=== PATIENT | female | born 1990 | race Two or more races ===

== ENCOUNTER 2018-06-29 17:47 | Emergency (ER) | payer MEDICAID ==
[~2018-06-29] VITALS: Ht 157.5 cm; Wt 48.1 kg
[2018-06-29 18:34] VITALS: BP 92/53
== END 2018-06-29 20:05 | disposition home or self-care (01) ==
LOC: ER 17:53
DX: K02.9 Dental caries, unspecified (principal)

== ENCOUNTER 2019-10-25 22:12 | Emergency (ER) | payer MEDICAID ==
[~2019-10-25] VITALS: Ht 157.5 cm; Wt 48.1 kg
[2019-10-25 23:38] VITALS: BP 107/63
== END 2019-10-26 00:04 | disposition home or self-care (01) ==
LOC: ER 22:15
DX: J06.9 Acute upper respiratory infection, unspecified (principal)

== ENCOUNTER 2020-01-27 05:44 | Emergency (ER) | payer MEDICAID ==
[~2020-01-27] VITALS: Ht 157.5 cm; Wt 57.2 kg
[2020-01-27 06:40] VITALS: BP 99/69
[2020-01-27] MEDS ORDERED: methylPREDNISolone SOD SUCC 125 MG/2 ML VL IM ONE (07:00)
== END 2020-01-27 08:32 | disposition home or self-care (01) ==
LOC: ER 05:44
DX: J06.9 Acute upper respiratory infection, unspecified (principal)